=== PATIENT | female | born 1980 | race Caucasian/White ===

== ENCOUNTER → 2017-02-08 | Outpatient (CLI) | payer BC, OTHER ==
[~2017-02-08] VITALS: Ht 172.7 cm; Wt 60.6 kg
[~2017-02-08] MED LIST: ADDERALL 20 MG20 M1 PO; HYDROCODONE-AP1 EAC6 PO; IBUPROFEN 200200 M1 PO; IBUPROFEN 600600 M1 PO; LORAZEPAM 1 MG T1 M1 PO; LYRICA 50 MG50 MG PO; LYRICA 75 MG CA75 MG PO; LYRICA100 MG PO; NEURONTIN 300300 M1 PO; TRAMADOL 50 MG50 MG PO
--- NOTE | ~2017-02-08 | HPC ---
[facility] [address] [place] [address] PAIN MANAGEMENT CONSULTATION Name: ARYAN BARFIELD Room #: REG REBECCA Yin#: [id number] Admission: 02/08/17 Attend Phys: Didier Valdez DO Discharge: Date of : 76 Report #: [id number] THIS REPORT FOR: //name// CC: Giselle Valdez The patient is a very pleasant 36-year-old female being treated for CRPS, left upper extremity. Last seen in the pain clinic 01/11/2017. The patient had had 3 stellate ganglion blocks with only transient efficacy. Trial of Lyrica samples, which provided good efficacy, but insurance does not pay for this. We rotated to gabapentin at last visit. She returns to pain clinic today. We had a prolonged visit from 1322 to 1350. Greater than 50% of the 25+ 15-minute visit spent counseling the patient. The patient notes pain continues, left shoulder, wrist and hand. She developed significant swelling in the tongue and mouth following trial of gabapentin. She notes that she discontinued gabapentin and Lyrica and realized the Lyrica was significantly helpful with her pain. Unfortunately, Lyrica is not apparently covered by insurance company. She has now effectively failed gabapentin. I will reinitiate Lyrica 75 mg b.i.d. Prescription written for same and patient given samples to use while we wait for prior authorization. If for whatever reason it turns out that with [employer], the cost remains onerous, I will have patient follow up for consideration for trial of Gralise (300 mg 2 at dinner possibly increasing to 3 tablets, ranging 9802-9503 mg). The patient has an appointment at [facility] today for what sounds like an EMG. She has been in contact with her surgeon, Dr. Dashawn Ramires for consideration for surgery that may involve wrapping the distal end of the injured nerve (radial?), some kind of a material. I do not have any information from Dr. Ramires regarding this surgical procedure: This is simply word of mouth through the patient. She notes pain remains 3-4 on a 0-10 visual analog scale with rest and current medications (Lyrica 75 mg b.i.d., ibuprofen 600 mg t.i.d., hydrocodone 5/325 p.r.n.). 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 PHYSICAL EXAMINATION: Shows a 36-year-old female, BMI is 20.3 kilograms per meter squared. Blood pressure is 139/86, pulse 97, respirations 16. Cranial nerves 2-12 are grossly intact. Pupils are equal and reactive to light and accommodation. Extraocular muscles are intact. She is alert and oriented to person, place, and time, judged to be a reasonable historian. Cervical range of motion is full. Again, she is wearing a splint in the left hand, has light touch allodynia, slight decreased range of motion to flexion. Hand grasp is starting to get little diminished. ASSESSMENT: Complex regional pain syndrome, reflex sympathetic dystrophy, left [address] [address] PAIN MANAGEMENT CONSULTATION Name: ARYAN BARFIELD Room #: REG REBECCA Yin#: [id number] Admission: 02/08/17 Attend Phys: Didier Valdez DO Discharge: Date of : 76 Report #: [id number] upper extremity requiring complex medication management. RECOMMENDATIONS: As noted above, we will trial again writing for Lyrica 75 mg b.i.d. as this has afforded patient excellent efficacy. She has failed gabapentin with tongue swelling and cracking in her lips. We will renew hydrocodone 5/325 p.r.n. and ibuprofen 600 mg t.i.d. Lastly, we will see the patient back in 1 month for reevaluation. If for whatever reason Lyrica remains unavailable via her insurance or simply cost prohibitive we may consider Gralise. <ELECTRONICALLY SIGNED> By: Didier Valdez DO 02/09/17 0704 [id number] Didier Valdez DO /nt
[2017-02-08 13:13] VITALS: BP 139/86
== END ==
LOC: PAIN 07:10
DX: G90.512 Complex regional pain syndrome I of left upper limb (principal); F17.210 Nicotine dependence, cigarettes, uncomplicated

== ENCOUNTER → 2017-03-30 | Outpatient (CLI) | payer BC, OTHER ==
[~2017-03-30] VITALS: Ht 172.7 cm; Wt 59.9 kg
--- NOTE | ~2017-03-30 | HPC ---
[facility] [place] [address] PAIN MANAGEMENT CONSULTATION Name: BLESSING NEILARYAN Room #: REG REBECCA Yin#: [id number] Admission: 03/30/17 Attend Phys: Didier Valdez DO Discharge: Date of : 76 Report #: [id number] THIS REPORT FOR: //name// CC: Giselle Valdez The patient is a 36-year-old female being treated for CRPS, left upper extremity requiring complex medication management. Last seen in pain clinic 02/08/2017. We continued the patient on Lyrica 75 mg b.i.d. She has failed gabapentin. Uses hydrocodone rarely. She returns to pain clinic today. She has had unfortunately yet another surgery. Had I and D of staph infection. She is planning on her 6th surgery on 04/11/2017, Dr. Ramires is planning on removing the hardware in her left forearm. Apparently, screws in the distal aspect of the ulna are abrading a little bit some of the carpal bones causing pain with flexion. The patient notes that the Lyrica has been helpful. She notes if she misses a dose, it is quite obvious that pain is debilitating. 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 It is actually fairly physically labor intensive. He returns to pain clinic today. Physical exam shows a 36-year-old female, BMI is 20.1 kilograms per meter squared. Vital signs stable as noted in the EMR. Currently wearing a soft splint on the left arm limiting range of motion, status post the most recent I and D surgery. Distal finger ROM and sensation are good. Pulses are good. ASSESSMENT: Complex regional pain syndrome, left upper extremity requiring complex medication management; chronic pain, left upper extremity, status post multiple surgeries. RECOMMENDATION: Continue Lyrica 75 mg b.i.d. Again, she failed gabapentin due to tongue swelling. I am loathe to prescribe Gralise as it is simply slower distribution of the gabapentin molecule. She has done well with Lyrica. We will continue 75 mg b.i.d. The patient was given samples and a prescription for same. I did take the liberty of renewing hydrocodone low dose 5/325 one tablet 3-4 times a day, limit 100 tablets. Continue ibuprofen 600 mg t.i.d., prescription with 3 refills given. Follow up simply as needed. <ELECTRONICALLY SIGNED> By: Didier Valdez DO 04/02/17 0657 [id number] Didier Valdez DO /nt
[2017-03-30 10:35] VITALS: BP 123/80
== END | disposition home or self-care (01) ==
LOC: PAIN 06:50
DX: G90.512 Complex regional pain syndrome I of left upper limb (principal); F17.200 Nicotine dependence, unspecified, uncomplicated; Z98.890 Other specified postprocedural states

== ENCOUNTER → 2017-05-14 | Outpatient (CLI) | payer BC, OTHER ==
[~2017-05-14] VITALS: Ht 172.7 cm; Wt 59.1 kg
--- NOTE | ~2017-05-14 | HPC ---
[facility] [place] [place] [address] PAIN MANAGEMENT CONSULTATION Name: ARYAN FUNK Room #: REG REBECCA Yin#: [id number] Admission: 05/14/17 Attend Phys: Didier Valdez DO Discharge: Date of : 76 Report #: [id number] THIS REPORT FOR: //name// CC: Giselle Valdez HISTORY OF PRESENT ILLNESS: The patient is a pleasant 36-year-old female typically seen for CRPS left upper extremity, neuropathic pain requiring complex high risk medication management. Last seen in the pain clinic on 03/30/2017. Continued Lyrica 75 mg b.i.d., hydrocodone 5/325 limit 100 tablets for 30 days and ibuprofen 600 mg t.i.d. The patient was planning surgery, literally her sixth surgery on that left wrist to have the hardware removed on 04/11/2017. This surgery proceeded, unfortunately this was complicated by a postoperative infection. She has now had 2 more surgeries to debride the area. She is currently on doxycycline. She tried weaning off of Lyrica due to the significant cost of this agent, $275 with discount cards. I have endeavored very hard to get this approved by her insurance company. She had a true allergic reaction, blistering in the oropharynx with oral desquamation. I am concerned about considering restarting gabapentin for fear of an anaphylactic, René-Verma type reaction. Given this, I do not think release is a viable option as it is simply a gabapentin molecule in a different distribution. After a long discussion, we have elected to simply continue Lyrica 75 mg b.i.d., I gave the patient samples today and again we will seek prior authorization for this needed agent. She notes ongoing neuropathic pain in the left wrist. Range of motion is limited. There is ecchymosis, erythema and swelling of the wrist, although I do not detect any ballottable edema. Fortunately, she is afebrile and there are no epitrochlear lymph nodes noted. ASSESSMENT: Neuropathic pain, left upper extremity, status post multiple surgeries, now with hopefully resolving infection, significant neuropathic pain component. We reviewed the fact that opiate medications are being used to provide analgesia adequate to support activities of daily living, not attempting to achieve a specific pain score on the 0-10 Visual Analog Scale. The current opiate medications are providing sufficient analgesia to allow the patient to participate in activities of daily living. The patient is not exhibiting any aberrant behavior suggestive of drug diversion. The patient is not having any adverse reactions to medications. The patient is not suffering from daytime somnolence or mental acuity changes. The patient is managing opiate-induced constipation with appropriate [id number]-[id number] agents and dietary considerations. The patient was counseled on concern for caution with operating a motor vehicle while using opiate medications. [address] [address] PAIN MANAGEMENT CONSULTATION Name: FERNROBERTARYAN ASHLEY Room #: REG [facility] Ke.#: [id number] Admission: 05/14/17 Attend Phys: Didier Valdez DO Discharge: Date of : 76 Report #: [id number] A physical exam was performed and the patient's functional status was evaluated. All patients with back pain were advised against the bed rest greater than 4 days and were advised to return to normal activities. Pain score assessment was noted and the treatment plan was reviewed with the patient. All current medications, both prescribed and OTC were reviewed and reconciled on the electronic medical record. Tobacco screening was accomplished and smoking cessation was advised when indicated. BMI was noted and diet/exercise modification was recommended for all patients following outside normal parameters. I reviewed with the patient today their responsibilities to safeguard prescription medications, reviewed their responsibility to utilize medications only as prescribed by the physician. They are to seek and receive pain medications only from 1 physician group ( [facility]). They are to use 1 pharmacy and keep the clinic informed if they change pharmacies. Their responsibilities include making followup visits in a timely fashion and to avoid abrupt discontinuation of medication usage. Their responsibilities further include bringing their medications (bottles from the pharmacy with residual pills) to the visit for possible confirmation of pill counts and the patient understands it is their responsibility to submit to random drug screens to ensure both that the medications prescribed are present, and that no other controlled substances are present. All prescriptions provided today were generated electronically. RECOMMENDATIONS: 1. Continue hydrocodone 5/325, limit 100 tablets for 30 days. 2. Continue Lyrica 75 mg b.i.d. We will seek authorization for same, samples given. By: [id number] Didier Valdez DO /nt
[2017-05-14 14:48] VITALS: BP 122/86
== END ==
LOC: PAIN 07:13
DX: M79.2 Neuralgia and neuritis, unspecified (principal); F17.200 Nicotine dependence, unspecified, uncomplicated; Z79.899 Other long term (current) drug therapy; Z98.890 Other specified postprocedural states